=== PATIENT | female | born 1940 | race Caucasian/White ===

== ENCOUNTER 2018-12-24 11:47 | Day surgery (SDC) | payer MEDICARE, BC ==
[2018-12-24] VITALS (7 sets, daily range): BP systolic 110–149; BP diastolic 49–88; PULSE 64–91; TEMP 97.3–98.8
[~2018-12-24] VITALS: Ht 170.2 cm; Wt 92.3 kg
[2018-12-24] MEDS ORDERED: MINOXIDIL 2.5 PO (13:38)
[2018-12-24] MEDS ORDERED: ASPIRIN 81M81 MG/TA2 PO (13:38)
[2018-12-24] MEDS ORDERED: LASIX 40MG TABL40 MG PO (13:38)
[2018-12-24] MEDS ORDERED: SYNTHROID 0.10.15 MG PO (13:38)
[2018-12-24] MEDS ORDERED: ZYRTEC 10MG10 MG PO (13:39)
[2018-12-24] MEDS ORDERED: CALCIUM 600 PLU1 TAB PO (13:40)
[2018-12-24] MEDS ORDERED: MASON NATURAL1200 MG PO (13:40)
[2018-12-24] MEDS ORDERED: WOMEN'S DAILY1 TAB PO (13:41)
[2018-12-24] MEDS ORDERED: LIPITOR20 MG PO (13:41)
[2018-12-24] MEDS ORDERED: TOPROL XL 50MG50 MG PO (13:42)
[2018-12-24] MEDS ORDERED: VITAMIN B COMPL1 SGL PO (13:42)
--- NOTE | 2018-12-24 13:43 | NUR ---
TO RM AT 1232 CALL LIGHT IN REACH AT BEDSIDE
--- NOTE | 2018-12-24 15:04 | NUR ---
CONCERNED ABOUT THE WAIT AND NOT EATING. PATIENTS RECEIVED MUFFIN AND BLACK COFFEE
--- NOTE | 2018-12-24 18:08 | NUR ---
PT TO ROOM 329 PER BED WITH REPORT BY [facility] @1800. VSS PT VOIDED ON ARRIVAL TO FLOOR. IV FLUIDS DISCONTINUED. PT IS A/O X3. PT DENIES PAIN AT THIS TIME.
--- NOTE | 2018-12-24 18:36 | NUR ---
REPORT TO JOSE GUADALUPE BARAHONA
--- NOTE | 2018-12-24 20:00 | NUR ---
Assessment complete. VS stable. Voided x2. Tolerated diet. Denies pain. Meets discharge criteria. Discharge instructions given both verbal and handwritten. Discussed f/u appt, s/s of infection, home medications and activity. Escorted to ER exit via wheelchair. Discharged home with spouse in stable condition.
== END 2018-12-24 20:30 | disposition home or self-care (01) ==
LOC: SDCO 11:47 → JCC 18:00 → SDCO 20:30 → JCC 20:30
DX: N13.2 Hydronephrosis with renal and ureteral calculous obstruction (principal); Z79.82 Long term (current) use of aspirin; Z85.850 Personal history of malignant neoplasm of thyroid; E03.9 Hypothyroidism, unspecified; E78.5 Hyperlipidemia, unspecified; I10 Essential (primary) hypertension; F32.9 Major depressive disorder, single episode, unspecified; F41.9 Anxiety disorder, unspecified; K21.9 Gastro-esophageal reflux disease without esophagitis; Z90.49 Acquired absence of other specified parts of digestive tract; Z90.710 Acquired absence of both cervix and uterus; Z90.722 Acquired absence of ovaries, bilateral; Z90.79 Acquired absence of other genital organ(s); J30.81 Allergic rhinitis due to animal (cat) (dog) hair and dander; J30.89 Other allergic rhinitis
CPT/HCPCS: OP; C1769; C2617; J0690; J1100; J1885; J2405; J2704; J3010; J7120; Q9967